=== PATIENT | male | born 1990 | race African-American/Black ===

== ENCOUNTER 2021-11-08 12:27 | Emergency (ER) | payer OTHER ==
[2021-11-08 12:59] VITALS: BP 117/73; PULSE 69; TEMP 98.4; BMI 24.3
[2021-11-08] MEDS ORDERED: LIDOCAINE 5% TOPICAL PATCH TP ONE (14:49)
[2021-11-08] MEDS ORDERED: KETOROLAC TROMETHAMINE 30 MG/1 ML VIAL IM ONE (14:49)
[2021-11-08] MEDS ORDERED: diazePAM 5 MG TABLET PO ONE (14:50)
[2021-11-08] MEDS ORDERED: diazePAM 5 MG TABLET ONE (15:02)
[2021-11-08] MEDS ORDERED: LIDOCAINE 5% TOPICAL PATCH ONE (15:02)
[2021-11-08] MEDS ORDERED: KETOROLAC TROMETHAMINE 30 MG/1 ML VIAL ONE (15:02)
[2021-11-08] MEDS ORDERED: LIDOCAINE PATCH REMOVAL MC SCH (22:00)
== END 2021-11-08 17:57 | disposition home or self-care (01) ==
LOC: JERFT 12:27
PROC: 3E023GC Introduction of Other Therapeutic Substance into Muscle, Percutaneous Approach (ICD-10-PCS; principal; 2021-11-08)
DX: M54.2 Cervicalgia (principal); M25.511 Pain in right shoulder; M25.512 Pain in left shoulder; M62.838 Other muscle spasm
CPT/HCPCS: 72125-TC; 73030-TC-LT-FY; 73030-TC-RT-FY; 99284-25